=== PATIENT | female | born 1985 | race Caucasian/White ===

== ENCOUNTER 2017-11-07 10:25 | Outpatient (CLI) | payer MEDICAID, SELFPAY ==
[2017-11-07 10:51] LABS: HCT 46.8 % (36.0-46.0); HGB 15.5 g/dL (12.0-15.5); Mean Corp. HGB Concentration 33.1 g/dL (32.0-36.0); Mean Corpuscular Hemoglobin 28.2 pg (27.0-33.0); Mean Corpuscular Volume 85.2 fL (80-95); Platelet Count 200 x1000/uL (130-400); RBC 5.49 m/cumm (4.00-5.20); RBC Distribution Width 13.5 % (11.7-14.6); White Blood Cell Count 10.92 k/cumm (4.4-10.8)
[2017-11-07 12:15] LABS: ALT 31 U/L (12-78); AST 19 U/L (15-37); Albumin 4.1 g/dL (3.4-5.0); Alkaline Phosphatase 86 U/L (46-116); Anion Gap 9.9 mmol/L (3-11); BUN 8 mg/dL (7-18); Bilirubin, Total 0.3 mg/dL (0.2-1.0); CO2 27.1 mmol/L (21.0-32.0); CREATININE 0.91 mg/dL (0.55-1.02); Calcium 8.9 mg/dL (8.5-10.1); Chloride 103 mmol/L (98-107); Glucose 95 mg/dL (70-100); Potassium 4.4 mmol/L (3.5-5.1); Sodium 140 mmol/L (136-145); TSH 0.82 uIU/mL (0.358-3.74); Total Protein 6.8 g/dL (6.4-8.2)
== END 2017-11-07 10:45 ==
PROVIDERS: PCP Neuromusculoskeletal Medicine & OMM; Visit Provider Neuromusculoskeletal Medicine & OMM
DX: R53.83 Other fatigue (principal)
CPT/HCPCS: 36415; 80053; 85027; 84443

== ENCOUNTER 2018-09-19 10:43 | Outpatient (REF) | payer MEDICAID, SELFPAY ==
--- NOTE | 2018-09-19 10:30 | PAPFT_PTH ---
PATIENT: Brianda Jackson LOC: [facility] U#:[id number] AGE/SX: 33/F ROOM: RE09/19/[address]: SORAYA Alejandra : 1985 BED: DIS: 09/19/2018 SPEC #: [id number] RECD: 09/19/18 17:46 STATUS: ANDRADE REQ #: [id number] DAVIDA: 09/19/18 10:[address]: Stephanie Cortez [facility] Cyt[facility] RECD BY: Nathalie Winters ENTERED: 09/19/18 17:46 SP TYPE: PAPFT SELENAHR DR: Oliverio Gordon Tissues: 1 - CX/ENDOCX FOR PAP SMEARS Procedures: PAP THIN PREP/UVM Screening HPV DNA PROBE Comments: [id number]
== END 2018-09-19 11:03 ==
LOC: LBN 10:43
PROVIDERS: PCP Neuromusculoskeletal Medicine & OMM; Visit Provider Nurse Practitioner Family
DX: Z12.4 Encounter for screening for malignant neoplasm of cervix (principal); Z11.51 Encounter for screening for human papillomavirus (HPV)
CPT/HCPCS: 88142; 87624

== ENCOUNTER 2018-09-19 10:45 | Outpatient (CLI) | payer MEDICAID, SELFPAY ==
[2018-09-19 14:05] LABS: TSH (W/Ref FT4) 1.25 uIU/mL (0.36-3.74)
== END 2018-09-19 11:05 ==
PROVIDERS: PCP Neuromusculoskeletal Medicine & OMM; Visit Provider Nurse Practitioner Family
DX: N92.6 Irregular menstruation, unspecified (principal); Z12.4 Encounter for screening for malignant neoplasm of cervix; Z11.51 Encounter for screening for human papillomavirus (HPV)
CPT/HCPCS: 36415; 88142; 84443; 87624

== ENCOUNTER 2018-11-14 16:03 | Outpatient (REF) | payer MEDICAID, SELFPAY | END 2018-11-14 16:23 | LOC: LBN 16:03 | PROVIDERS: PCP Neuromusculoskeletal Medicine & OMM; Visit Provider Obstetrics & Gynecology | DX: N76.4 Abscess of vulva (principal) | CPT/HCPCS: 87070; 87186; 87205 ==

== ENCOUNTER 2019-07-17 11:10 | Outpatient (CLI) | payer MEDICAID, SELFPAY ==
[2019-07-18 14:54] LABS: COVID-19 RT-PCR Result NEGATIVE (Negative)
== END 2019-07-17 11:30 ==
PROVIDERS: PCP Neuromusculoskeletal Medicine & OMM; Visit Provider Registered Nurse
DX: Z11.59 Encounter for screening for other viral diseases (principal)
CPT/HCPCS: U0003

== ENCOUNTER 2020-03-29 10:45 | Outpatient (CLI) | payer MEDICAID, SELFPAY ==
[2020-03-30 11:46] LABS: COVID-19 RT-PCR UVMMC Result Negative (Negative)
== END 2020-03-29 10:46 | disposition home or self-care (01) ==
LOC: LBO 10:45
PROVIDERS: PCP Neuromusculoskeletal Medicine & OMM; Visit Provider Registered Nurse
DX: J02.9 Acute pharyngitis, unspecified (principal)
CPT/HCPCS: U0003

== ENCOUNTER 2020-08-20 17:06 | Emergency (ER) | payer MEDICAID, SELFPAY ==
[2020-08-20 17:13] VITALS: BP 134/82; PULSE 66; RESP 16; TEMP 37.2; O2SAT 100
--- NOTE | 2020-08-20 17:15 | DI.RAD_ITS ---
Exam(s) XR THUMB LT EXAM: XR THUMB LT EXAM DATE/TIME: CLINICAL HISTORY: jammed L thumb in door, r/o fx. TECHNIQUE: 2D digital imaging was performed. COMPARISON: None. FINDINGS: BONES: There appears to be a nondisplaced acute fracture involving the base of the distal phalanx of the left thumb. No bony destructive lesion is seen. JOINTS: No dislocation present. SOFT TISSUE: Soft tissue swelling of the left thumb. IMPRESSION: 1. Nondisplaced fracture involving the base of the distal phalanx of the left thumb. 2. Findings were discussed with Dr. Bustillo the emergency department on 08/21/2020. DATA REPOSITORY: RADIATION DOSE DELIVERED:
--- NOTE | 2020-08-20 17:29 | ED.GENADUL_ITS ---
Discharge Plan Disposition Patient Disposition: HOME Condition: Stable Discharge Details Clinical Impression: Contusion of left thumb Primary Care Provider: Oliverio Gordon ED Provider: Es Krishna Home Meds and New Rx's Prescriptions: Continued multivitamin Tablet 1 tab PO DAILY RF: 0 ibuprofen 200 mg Tablet 600 mg PO Q6H PRNRF: 0 Discharge Instructions Instructions: Contusion in Adults (ED) Additional Instructions: Rest, ice, and elevate the affected area as much as possible. Alternate tylenol and motrin as needed and directed for pain. Call the orthopedics office tomorrow morning to schedule a follow-up appointment for reevaluation in the next week. You could also possibly follow-up with your regular doctor if you are unable to get an appointment with orthopedics. Return immediately to the emergency department if you develop any worsening or new concerning symptoms. Referrals: Sedrick Tinsley MD [ [facility] STAFF PHYSICIAN] - Discharge Data Discharge Date/Time-TO BE ENTERED AT DEPARTURE: 08/20/20 18:28 Discharge Physician: Es Krishna Medical Decision Making 35yo F presents with L thumb pain after she jammed it against a door at home last night. She has tenderness and ecchymoses noted to the L thumb, most pronounced at the distal phalanx. No obvious deformity. No open wounds. She denies known . She was referred for xray which was read as negative but I do see a chip fracture at the base of the distal phalanx. Will place in thumb spica splint. Patient placed on orthopedic follow-up list. Usual and customary return precautions given prior to discharge. Follow up: In-house radiologist read the x-ray the next day noting a fracture at the base of the distal phalanx. Patient was called on her cell phone and informed of this finding and that we treated her with a thumb spica splint which is appropriate treatment at this time. She states she called orthopedics for follow-up. Medical Records Medical records reviewed: Yes I reviewed the patient's medical records. Imaging Data Radiologic Study: My impression: XR Left Finger(s) Exam date and time: 08/20/2020 5:29 PM Age: 35 years old Clinical indication: Finger(s); Patient HX: Left thumb pain, PT jammed left thumb in door 08/19/2020 TECHNIQUE: Imaging protocol: XR Left fingers. Views: Minimum 2 views. COMPARISON: No relevant prior studies available. FINDINGS: Bones/joints: Normal. Soft tissues: Normal. IMPRESSION: No acute findings. HPI General Mode of arrival: ambulatory . Date/Time Provider Initiated Documentation: 08/20/20 17:21 . Limitations to Documentation: no limitations . Information obtained by: patient . HPI Narrative: Patient is a 35-year-old female who presents with L thumb pain and swelling after she jammed her finger against a wooden garage door when she was on the other side of it and her opened the door. She is c/o pain only in her thumb and denies any hand or wrist pain. She states she took ibuprofen this morning. Related Data Home Medications Medication Instructions Recorded Confirmed ibuprofen 600 mg PO Q6H PRN 08/20/20 08/20/20 multivitamin 1 tab PO DAILY 08/20/20 08/20/20 Allergies Allergy/AdvReac Type Severity Reaction Status Date / Time bacitracin zinc Allergy Unknown SKIN RASH Verified 08/20/20 17:20 [From Neosporin ([id number])] neomycin sulfate Allergy Unknown SKIN RASH Verified 08/20/20 17:20 [From Neosporin ([id number])] penicillin G Allergy Unknown ? 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 Surgical History (Updated 08/20/20 @ 17:34 by Es Krishna DO) No significant past surgical history Family History Mother Thyroid disorder Maternal Aunt Thyroid disorder Maternal Grandmother Thyroid disorder Social History Smoking/Tobacco Use Status: Current every day Tobacco Type: cigarettes Smoking risk assessment performed?: Yes Drug use: Never Substance use type: does not use Do you feel safe in your relationship?: Yes Female Reproductive History Menstrual control method: permanent sterilization History History 4 Para 4 Hx # Term Pregnancies Multiple births Hx # Pregnancies Ectopic pregnancies AB induced Hx Number of Living Children AB spontaneous Exam Const General: cooperative, healthy appearing and no acute distress HENMT Head: normal to inspection Mouth: oral mucosae normal Eyes General: appearance normal, both eyes and all related structures Neck Neck: normal visual inspection Resp Effort & Inspection: normal respiratory effort and able to speak in complete sentences Cardio Rate: regular rate Skin General skin exam: no rashes or lesions noted Neuro General: patient alert, patient awake and patient oriented x3 Motor: muscle tone normal throughout Extrem General: capillary refill normal Other: Edema and ecchymoses noted to the L thumb extending from the tip to the base, most pronounced on palmar aspect and at distal phalanx. No open wounds or deformity. Limited ROM due to pain. Psych Appearance: grossly normal Affect: normal affect Course Vital Signs Vital signs: Vital Signs Pulse 66 08/20/20 17:13 Respiratory Rate 16 08/20/20 17:13 Blood Pressure 134/82 08/20/20 17:13 Pulse Oximetry 100 08/20/20 17:13 Pulse 66 08/20/20 17:13 Respiratory Rate 16 08/20/20 17:13 Respiratory Effort Non-Labored 08/20/20 17:13 Blood Pressure 134/82 08/20/20 17:13 Blood Pressure Position Supine 08/20/20 17:13 Pulse Oximetry 100 08/20/20 17:13 Oxygen Delivery Method Room Air 08/20/20 17:13 Oxygen Flow Rate 0 08/20/20 17:13 Pain Level 5 08/20/20 17:13 Procedures Orthopedic Splinting/Casting Injury #1: Side: left Upper Extremity Injury Location: finger (thumb) Upper Extremity Immobilizer: thumb spica
--- NOTE | 2020-08-20 17:59 | DI.VRAD_ITS ---
Addendum created by Clint Chou MD on 08/25/2020 5:39:23 PM EDT: There is a small rounded cortical defect within the base of the distal phalanx of the thumb compatible with a nondisplaced fracture. Initial report created on 08/20/2020 5:59:03 PM EDT: PROCEDURE INFORMATION: Exam: XR Left Finger(s) Exam date and time: 08/20/2020 5:29 PM Age: 35 years old Clinical indication: Finger(s); Patient HX: Left thumb pain, PT jammed left thumb in door 08/19/2020 TECHNIQUE: Imaging protocol: XR Left fingers. Views: Minimum 2 views. COMPARISON: No relevant prior studies available. FINDINGS: Bones/joints: Normal. Soft tissues: Normal. IMPRESSION: No acute findings. Dictated and Authenticated by: Clint Chou MD. Ordering:TIA Suggs MD
== END 2020-08-20 18:28 | disposition home or self-care (01) ==
PROVIDERS: Emergency Provider Physician Assistant; PCP Neuromusculoskeletal Medicine & OMM
DX: S62.522A Displaced fracture of distal phalanx of left thumb, initial encounter for closed fracture (principal); W22.09XA Striking against other stationary object, initial encounter
CPT/HCPCS: 26750; 73140